=== PATIENT | female | born 2000 | race Caucasian/White ===

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

== ENCOUNTER 2024-08-10 12:39 | Emergency (ER) | payer SELFPAY ==
[2024-08-10 13:23] LABS: Bacteria/HPF None Seen HPF (None Seen); Bilirubin Negative (Negative); Blood, Urine 3+ (Negative); CAUTI Indications for Culture Pelvic or flank pain; Clarity Extra Turbid (Clear); Glucose, Urine (Dipstick) Normal (Negative); Ketone, Urine Negative (Negative); Nitrite Negative (Negative); Protein, Urine (Dipstick) 50 mg/dL (Neg-Trace); RBC/HPF Greater than 50 HPF (0-3); Specific Gravity, Urine 1.011 (1.002-1.036); Squamous Epithelial 0-3 HPF (0-3); Urobilinogen Normal mg/dL (Less than 2)
[2024-08-10 13:25] LABS: Leukocyte Negative (Negative)
[2024-08-10 13:27] LABS: Urine Culture Reflex No No
[2024-08-10 13:33] LABS: #Basophils Less than 0.03 10x3/uL (0.0-0.2); %Basophils 0.3 % (0.0-1.0); %Eosinophils 1.4 % (0.0-10.0); %Lymphocytes 13.1 % (21.0-51.0); %Monocytes 5.9 % (0.0-10.0); %Neutrophils 78.7 % (42.0-75.0); Hematocrit 43.9 % (36.0-47.0); Hemoglobin 14.1 g/dL (12.0-16.0); Mean Corpuscular HGB CONC 32.1 g/dL (32.0-36.0); Mean Corpuscular Hemoglobin 29.3 pg (27.0-31.0); Mean Corpuscular Volume 91.3 fL (78.0-98.0); Mean Platelet Volume 10.8 fL (7.4-10.4); Platelet Count 198 10x3/uL (130-400); RBC Distribution Width 13.5 % (11.5-14.5); Red Blood Cell (RBC) Count 4.81 mill/uL (4.20-5.40)
[2024-08-10 13:54] LABS: ALT (SGPT) 16 U/L (8-55); AST (SGOT) 16 U/L (5-34); Alkaline Phosphatase 54 U/L (40-110); Anion Gap 12 mmol/L (10-20); BUN (Urea Nitrogen) 6 mg/dL (7.0-18.7); Bilirubin, Total 0.8 mg/dL (0.2-1.2); Calc. Creatinine Clearance 0 mL/min (70-130); Calcium 9.3 mg/dL (7.8-10.44); Carbon Dioxide 27 mmol/L (22-29); Chloride 105 mmol/L (98-107); Estimated GFR 109; Globulin 2.7 g/dL (2.4-3.5); Glucose 85 mg/dL (70-105); Protein, Total 6.7 g/dL (6.0-8.3); Sodium 140 mmol/L (136-145)
== END 2024-08-10 15:25 | disposition home or self-care (01) ==
LOC: ERS 12:39
DX: O03.9 Complete or unspecified spontaneous abortion without complication (principal)
CPT/HCPCS: 36415; 80053; 81001; 84702; 85025; 86900; 86901; 90384; 96372; 99283

== ENCOUNTER 2024-08-21 09:54 | Inpatient (IN) | payer SELFPAY ==
[2024-08-21 10:26] LABS: #Basophils Less than 0.03 10x3/uL (0.0-0.2); #Eosinophils Less than 0.03 10x3/uL (0.0-0.7); %Basophils 0.2 % (0.0-1.0); %Eosinophils 0.2 % (0.0-10.0); %Monocytes 11.1 % (0.0-10.0); %Neutrophils 75.3 % (42.0-75.0); Hematocrit 36.9 % (36.0-47.0); Hemoglobin 12.1 g/dL (12.0-16.0); Mean Corpuscular HGB CONC 32.8 g/dL (32.0-36.0); Mean Corpuscular Hemoglobin 29.6 pg (27.0-31.0); Mean Corpuscular Volume 90.2 fL (78.0-98.0); Mean Platelet Volume 10.6 fL (7.4-10.4); Platelet Count 172 10x3/uL (130-400); RBC Distribution Width 13.4 % (11.5-14.5); Red Blood Cell (RBC) Count 4.09 mill/uL (4.20-5.40)
[2024-08-21] MEDS ORDERED: Naloxone HCl 0.4 mg/ml Vial ONE (10:37)
[2024-08-21 10:45] LABS: BHCG - Serum Negative (NEGATIVE); Pregs Control Background? CLEAR/WHITE (CLR/WHITE); Pregs Control Bar Appear? YES (CONTROL BAR)
[2024-08-21 10:54] LABS: Magnesium 1.9 mg/dL (1.6-2.6)
[2024-08-21 11:03] LABS: Acetaminophen 159 mcg/mL (Less than 10); Alcohol Less than 10.0 mg/dL (Less than 10); Salicylate Less than 8.0 mg/dL (Less than 8.0)
[2024-08-21 11:18] LABS: Troponin I Less than 0.010 ng/mL (< 0.028)
[2024-08-21 12:12] LABS: Acetaminophen 184 mcg/mL (Less than 10); Alcohol Less than 10.0 mg/dL (Less than 10); Salicylate Less than 8.0 mg/dL (Less than 8.0)
[2024-08-21 12:32] LABS: ALT (SGPT) 18 U/L (8-55); AST (SGOT) 19 U/L (5-34); Albumin 3.3 g/dL (3.5-5.0); Alkaline Phosphatase 46 U/L (40-110); Anion Gap 15 mmol/L (10-20); BUN (Urea Nitrogen) 9 mg/dL (7.0-18.7); Bilirubin, Total 0.4 mg/dL (0.2-1.2); Calc. Creatinine Clearance 0 mL/min (70-130); Calcium 7.9 mg/dL (7.8-10.44); Carbon Dioxide 18 mmol/L (22-29); Chloride 110 mmol/L (98-107); Estimated GFR 122; Globulin 2.1 g/dL (2.4-3.5); Glucose 126 mg/dL (70-105); Potassium 3.9 mmol/L (3.5-5.1); Protein, Total 5.4 g/dL (6.0-8.3); Sodium 139 mmol/L (136-145)
[2024-08-21] MEDS ORDERED: Ondansetron PF 4 MG/2 ML Vial ONE ×2 (12:57→13:56)
[2024-08-21] MEDS ORDERED: ACETADOTE IVPB PRN (13:41)
[2024-08-21] MEDS: DEXTROSE 5% IV SCH ×3 (13:50→18:32)
[2024-08-21] MEDS: WATER IV SCH ×3 (13:50→18:32)
[2024-08-21] MEDS: ACETYLCYSTEINE IV SCH ×3 (13:50→18:32)
[2024-08-21] MEDS: Lactated Ringer's 1,000 ML IV SCH (13:52)
[2024-08-21] MEDS: Ondansetron PF 4 MG/2 ML Vial IVP PRN (13:53)
[2024-08-21 13:55] LABS: Bacteria/HPF None Seen HPF (None Seen); Bilirubin Negative (Negative); Blood, Urine Negative (Negative); CAUTI Indications for Culture Alt mental st,lethar; Clarity Clear (Clear); Glucose, Urine (Dipstick) Normal (Negative); Ketone, Urine Negative (Negative); Leukocyte Negative Leu/uL (Negative); Nitrite Negative (Negative); Protein, Urine (Dipstick) Negative (Neg-Trace); RBC/HPF 0-3 HPF (0-3); Squamous Epithelial 0-3 HPF (0-3); Urobilinogen Normal mg/dL (Less than 2); WBC/HPF 0-3 HPF (0-3); pH, Urine 5.5 (5.0-9.0)
[2024-08-21 13:57] LABS: Amphetamine Not Detected (NotDetected); Barbiturates Screen Not Detected (NotDetected); Benzodiazepine Screen Not Detected (NotDetected); Cocaine Metabolite Screen Not Detected (NotDetected); Methadone Not Detected (NotDetected); Methamphetamine Not Detected (NotDetected); Opiate Screen Not Detected (NotDetected); Oxycodone Screen Not Detected (NotDetected); Phencyclidine (PCP) Not Detected (NotDetected); Specific Gravity, Urine 1.005 (1.002-1.036); THC/Cannabinoid Screen Detected (NotDetected); Tricyclic Screen Not Detected (NotDetected)
[2024-08-21 13:58] LABS: Urine Culture Reflex No No
[2024-08-21] MEDS ORDERED: Pantoprazole 40 MG VIAL ONE (14:23)
[2024-08-21] MEDS ORDERED: Milk Of Magnesia 30 ML UDCUP ONE (14:23)
[2024-08-21 14:26] LABS: INR-International Normal Ratio 1.3; PTT 27.7 sec (22.9-36.1); Prothrombin Time 15.8 sec (12.0-14.7)
[2024-08-21] MEDS: Pantoprazole 40 MG VIAL IVP SCH (14:40)
[2024-08-21] MEDS: Mag-Al 1200 mg/1200 mg/30 ML UDCUP PO PRN (14:41)
[2024-08-21 17:42] VITALS: BMI 24.9
[2024-08-21] MEDS: FLU (Fluarix Triv) TS24-25(6MOS UP)/PF 45 MCG/0.5 ML Syringe IM ONE (18:32)
[2024-08-21 22:38] LABS: Acetaminophen 66 mcg/mL (Less than 10)
[2024-08-22 07:23] LABS: ALT (SGPT) 18 U/L (8-55); AST (SGOT) 18 U/L (5-34); Acetaminophen 21 mcg/mL (Less than 10); Albumin 3.1 g/dL (3.5-5.0); Alkaline Phosphatase 45 U/L (40-110); Bilirubin, Direct 0.1 mg/dL (0.1-0.3); Bilirubin, Total 0.3 mg/dL (0.2-1.2); INR-International Normal Ratio 1.2; PTT 29.1 sec (22.9-36.1); Protein, Total 5.4 g/dL (6.0-8.3); Prothrombin Time 14.8 sec (12.0-14.7)
[2024-08-22] MEDS: Pantoprazole 40 MG VIAL IVP SCH (08:32)
[2024-08-22 15:36] LABS: ALT (SGPT) 19 U/L (8-55); AST (SGOT) 18 U/L (5-34); Acetaminophen Less than 10 mcg/mL (Less than 10)
[2024-08-23 05:30] LABS: #Basophils Less than 0.03 10x3/uL (0.0-0.2); #Eosinophils Less than 0.03 10x3/uL (0.0-0.7); %Eosinophils 0.5 % (0.0-10.0); %Lymphocytes 40.7 % (21.0-51.0); %Neutrophils 49.3 % (42.0-75.0); Hematocrit 35.9 % (36.0-47.0); Hemoglobin 11.9 g/dL (12.0-16.0); Mean Corpuscular HGB CONC 33.1 g/dL (32.0-36.0); Mean Corpuscular Hemoglobin 29.5 pg (27.0-31.0); Mean Corpuscular Volume 89.1 fL (78.0-98.0); Mean Platelet Volume 10.9 fL (7.4-10.4); Platelet Count 161 10x3/uL (130-400); RBC Distribution Width 13.3 % (11.5-14.5); Red Blood Cell (RBC) Count 4.03 mill/uL (4.20-5.40)
[2024-08-23 06:18] LABS: ALT (SGPT) 15 U/L (8-55); AST (SGOT) 16 U/L (5-34); Albumin 3.3 g/dL (3.5-5.0); Alkaline Phosphatase 43 U/L (40-110); Anion Gap 10 mmol/L (10-20); BUN (Urea Nitrogen) 6 mg/dL (7.0-18.7); Bilirubin, Total 0.3 mg/dL (0.2-1.2); Calc. Creatinine Clearance 146 mL/min (70-130); Calcium 8.5 mg/dL (7.8-10.44); Carbon Dioxide 22 mmol/L (22-29); Chloride 109 mmol/L (98-107); Estimated GFR 126; Globulin 2.3 g/dL (2.4-3.5); Glucose 73 mg/dL (70-105); Potassium 3.2 mmol/L (3.5-5.1); Protein, Total 5.6 g/dL (6.0-8.3); Sodium 138 mmol/L (136-145)
[2024-08-23 08:20] VITALS: BP 119/78; TEMP 97.9
[2024-08-23] MEDS: Potassium Chloride 20 MEQ TAB PO SCH (08:44)
== END 2024-08-23 11:15 | DRG 918 ==
LOC: ERS 09:54 → ERHOLD 13:18 → CCU 17:30 → IMCU/EMU 21:42 → T4-A 08-22 13:30
PROVIDERS: ADMIT Family Medicine; ATTEND Internal Medicine
PROC: 06HY33Z Insertion of Infusion Device into Lower Vein, Percutaneous Approach (ICD-10-PCS; principal; 2024-08-21)
DX: T39.1X2A Poisoning by 4-Aminophenol derivatives, intentional self-harm, initial encounter (principal); T42.8X2A Poisoning by antiparkinsonism drugs and other central muscle-tone depressants, intentional self-harm, initial encounter; F41.9 Anxiety disorder, unspecified; F32.A Depression, unspecified; K21.9 Gastro-esophageal reflux disease without esophagitis; J45.909 Unspecified asthma, uncomplicated; M41.9 Scoliosis, unspecified; Z98.890 Other specified postprocedural states; Z88.1 Allergy status to other antibiotic agents; Z88.8 Allergy status to other drugs, medicaments and biological substances
CPT/HCPCS: 36415; 36416; 36556; 80053; 80076; 80143; 80306; 80307; 81001; 82550; 83735; 84443; 84450; 84460; 84484; 84703; 85025; 85610; 85730; 93005; 96361; 96365; 96375; 99292; J0132; J2310; J2405; J2470; J7070; J7120

== ENCOUNTER 2024-11-19 16:14 | Emergency (ER) | payer SELFPAY ==
[2024-11-19 18:04] LABS: Pregnancy Test - Urine (BHCG) Negative (Negative); Pregu Control Background? CLEAR/WHITE (CLR/WHITE); Pregu Control Bar Appear? YES (CONTROL BAR); Specific Gravity 1.025 (1.002-1.036)
[2024-11-19 18:39] LABS: HIV (1/2) Antibody/Antigen NONREACTIVE (NonReactive); HIV 1/2 INDEX 0.08 S/CO (<1.00)
[2024-11-19 19:10] LABS: Bilirubin Negative (Negative); Blood, Urine Negative (Negative); Clarity Clear (Clear); Glucose, Urine (Dipstick) Negative (Negative); Ketone, Urine Negative (Negative); Leukocyte Negative Leu/uL (Negative); Nitrite Negative (Negative); Protein, Urine (Dipstick) 10 mg/dL (Neg-Trace); Specific Gravity, Urine 1.025 (1.002-1.036); Urobilinogen 0.2 mg/dL (Less than 2)
[2024-11-19 19:11] LABS: CAUTI Indications for Culture Dysuria,urgency,freq; RBC/HPF 0-3 HPF (0-3); WBC/HPF 0-3 HPF (0-3)
[2024-11-19 19:12] LABS: Urine Culture Reflex No No
[2024-11-20 09:54] LABS: Chlamydia by PCR, Vaginal Swab Not Detected (NotDetected); GC by PCR, Vaginal Swab Not Detected (NotDetected)
[2024-11-20 11:38] LABS: Syphilis Antibody Nonreactive (Nonreactive); Syphilis Antibody Index 0.15 S/CO (<1.00 Non-Reactive)
== END 2024-11-19 20:11 | disposition home or self-care (01) ==
LOC: ERS 16:14
DX: Z20.2 Contact with and (suspected) exposure to infections with a predominantly sexual mode of transmission (principal)
CPT/HCPCS: 36415; 81001; 81025; 86780; 87389; 87480; 87491; 87510; 87591; 87660; 99282